=== PATIENT | female | born 1960 | race Hispanic/Latino ===

== ENCOUNTER → 2020-10-15 | Outpatient (CLI) | payer OTHER ==
[~2020-10-15] MED LIST: COVID-19 VACC, MRNA(MODERNA)/PF 100 MCG/0.5 ML VIAL IM ONE
== END ==
LOC: VACCPMC 15:30
DX: Z23 Encounter for immunization (principal); Z20.828 Contact with and (suspected) exposure to other viral communicable diseases

== ENCOUNTER → 2020-11-07 | Outpatient (CLI) | payer BC, OTHER | LOC: DX 08:31 | PROVIDERS: ATTEND Internal Medicine | DX: M81.0 Age-related osteoporosis without current pathological fracture (principal) | CPT/HCPCS: 77080 ==

== ENCOUNTER → 2020-11-18 | Outpatient (CLI) | payer OTHER | END | DRG 951 | LOC: VACCPMC 10:55 | DX: Z23 Encounter for immunization (principal); Z20.822 Contact with and (suspected) exposure to COVID-19 | CPT/HCPCS: 0012A; 91301 ==

== ENCOUNTER 2021-03-20 16:08 | Emergency (ER) | payer OTHER ==
[~2021-03-20] VITALS: Ht 152.4 cm; Wt 77.1 kg
[2021-03-20] MEDS ORDERED: KETOROLAC TROMETHAMINE 30 MG/ML VIAL IM STA (16:44)
[2021-03-20] MEDS ORDERED: IBUPROFEN 600 MG TAB PO STA (17:38)
[2021-03-20] MEDS ORDERED: IBUPROFEN 600 MG TAB ONE (17:49)
[2021-03-20] MEDS ORDERED: PREDNISONE20 MG PO (19:01)
[2021-03-20] MEDS ORDERED: MOTRIN200 MG PO (19:01)
== END 2021-03-20 19:10 | disposition home or self-care (01) ==
LOC: ER 16:20
DX: M54.12 Radiculopathy, cervical region (principal); M25.511 Pain in right shoulder
CPT/HCPCS: 72125; 99283

== ENCOUNTER 2023-03-02 10:27 | Emergency (ER) | payer BC, OTHER ==
[~2023-03-02] VITALS: Ht 152.4 cm; Wt 77.1 kg
[~2023-03-02 10:27] MED LIST changes: -COVID-19 VACC, MRNA(MODERNA)/PF 100 MCG/0.5 ML VIAL IM ONE; +MOTRIN200 MG PO; +PREDNISONE20 MG PO
[2023-03-02 11:18] VITALS: O2SAT 98
== END 2023-03-02 13:26 | disposition home or self-care (01) ==
LOC: ER 10:52
DX: M25.561 Pain in right knee (principal); M06.9 Rheumatoid arthritis, unspecified
CPT/HCPCS: 99282